=== PATIENT | female | born 1995 | race Caucasian/White ===

== ENCOUNTER 2016-06-30 12:22 | Outpatient (CLI) | payer OTHER ==
[~2016-06-30 12:22] MED LIST: COLACE 100MG C100 MG PO
== END 2016-06-30 14:07 | disposition home or self-care (01) ==
LOC: GENOP 12:22
DX: O42.913 Preterm premature rupture of membranes, unspecified as to length of time between rupture and onset of labor, third trimester (principal); Z3A.31 31 weeks gestation of pregnancy
CPT/HCPCS: 81001; 83518; G0463

== ENCOUNTER 2016-07-02 05:27 | Inpatient (IN) | payer OTHER ==
[~2016-07-02] VITALS: Ht 160 cm; Wt 73.0 kg
[2016-07-02 06:17] LABS: HEMOGLOBIN 13.1 gm/dl (12.3-15.3); RED BLOOD COUNT 4.46 M/UL (4.00-5.10); WHITE BLOOD COUNT 9.1 K/UL (4.5-11.0)
[2016-07-03 02:50] LABS: HEMOGLOBIN 11.3 gm/dl (12.3-15.3)
[2016-07-04] MEDS ORDERED: NORCO 5-325 TA1 EACH PO (12:18)
[2016-07-04] MEDS ORDERED: IBUPROFEN600 MG PO (12:18)
== END 2016-07-04 14:14 | disposition home or self-care (01) | DRG 775 ==
LOC: OB 05:27
PROVIDERS: ADMIT Obstetrics & Gynecology
PROC: 3E033VJ Introduction of Other Hormone into Peripheral Vein, Percutaneous Approach (ICD-10-PCS; principal; 2016-07-02)
PROC: 10907ZC Drainage of Amniotic Fluid, Therapeutic from Products of Conception, Via Natural or Artificial Opening (ICD-10-PCS; principal; 2016-07-02)
PROC: 10E0XZZ Delivery of Products of Conception, External Approach (ICD-10-PCS; principal; 2016-07-02)
DX: O99.334 Smoking (tobacco) complicating childbirth (principal); F17.210 Nicotine dependence, cigarettes, uncomplicated; O75.89 Other specified complications of labor and delivery; Z3A.39 39 weeks gestation of pregnancy; Z37.0 Single live birth; Z28.21 Immunization not carried out because of patient refusal; Z82.49 Family history of ischemic heart disease and other diseases of the circulatory system; Z80.9 Family history of malignant neoplasm, unspecified; Z83.3 Family history of diabetes mellitus; Z84.89 Family history of other specified conditions
CPT/HCPCS: 36415; 51702; 81001; 82800; 83518; 85014; 85018; 85025; 90715; G0463; J2405; J2590; J2795; J7120

== ENCOUNTER 2016-07-16 06:22 | Emergency (ER) | payer OTHER ==
[~2016-07-16 06:22] MED LIST changes: +IBUPROFEN600 MG PO; +NORCO 5-325 TA1 EACH PO
== END 2016-07-16 07:40 | disposition home or self-care (01) ==
LOC: ER1 06:22
DX: B86 Scabies (principal)
CPT/HCPCS: 99282

== ENCOUNTER → 2017-01-04 | Outpatient (CLI) | payer OTHER | LOC: NM 09:00 | DX: I10 Essential (primary) hypertension (principal) | CPT/HCPCS: 78227; A9537; J2805 ==

== ENCOUNTER 2020-10-06 13:52 | Observation (INO) | payer OTHER ==
[~2020-10-06] VITALS: Ht 157.5 cm; Wt 64.9 kg
[~2020-10-06 13:52] MED LIST changes: +LEVAQUIN500 MG PO; +ULTRAM50 MG PO
[2020-10-06 15:07] LABS: HEMOGLOBIN 12.9 gm/dl (12.3-15.3); RED BLOOD COUNT 4.42 M/UL (4.00-5.10); WHITE BLOOD COUNT 13.2 K/UL (4.5-11.0)
[2020-10-06 16:13] LABS: BUN/CREATININE RATIO 11 (0-10)
[2020-10-07 06:26] LABS: HEMOGLOBIN 10.8 gm/dl (12.3-15.3); RED BLOOD COUNT 3.76 M/UL (4.00-5.10); WHITE BLOOD COUNT 6.6 K/UL (4.5-11.0)
[2020-10-07] MEDS ORDERED: TYLENOL EXTRA500 MG PO (15:17)
[2020-10-07] MEDS ORDERED: NAPROXEN250 MG PO (15:17)
[2020-10-07] MEDS ORDERED: ROXICODONE TAB 55 MG PO (15:17)
[2020-10-07] MEDS ORDERED: DOCUSATE SODIU100 MG PO (15:17)
[2020-10-07 15:41] LABS: HEMOGLOBIN 11.6 gm/dl (12.3-15.3)
--- NOTE | 2020-10-07 16:38 | NUR ---
INSTUCTED ON FOLLOW UP WITH MD, KEEP APPOINTMENT REPORT ANY EXCESS BLEEDING. VERBALIZED UNDERSTANDING MARY PEREZ R.N.
== END 2020-10-07 17:09 | disposition home or self-care (01) ==
LOC: ER1 13:52 → CDU 16:35 → MED SURG 4 23:48
PROVIDERS: Obstetrics & Gynecology; Physician Assistant Medical; ADMIT Obstetrics & Gynecology
PROC: 0UB64ZZ Excision of Left Fallopian Tube, Percutaneous Endoscopic Approach (ICD-10-PCS; 2020-10-07)
PROC: 0UDB7ZZ Extraction of Endometrium, Via Natural or Artificial Opening (ICD-10-PCS; 2020-10-07)
PROC: 10T24ZZ Resection of Products of Conception, Ectopic, Percutaneous Endoscopic Approach (ICD-10-PCS; principal; 2020-10-07 11:56)
DX: O00.101 Right tubal pregnancy without intrauterine pregnancy (principal); N83.8 Other noninflammatory disorders of ovary, fallopian tube and broad ligament; K66.1 Hemoperitoneum; R93.89 Abnormal findings on diagnostic imaging of other specified body structures; K21.9 Gastro-esophageal reflux disease without esophagitis; D64.9 Anemia, unspecified; Z20.822 Contact with and (suspected) exposure to COVID-19
CPT/HCPCS: 36415; 76801; 80053; 81001; 84702; 85014; 85018; 85025; 86900; 86901; 96374; 96375; 96376; 99285; G0378; J0690; J1100; J1885; J2001; J2250; J2270; J2370; J2405; J2704; J2710; J2795; J3010; J7120; Q0177; U0002

== ENCOUNTER 2020-12-06 08:14 | Emergency (ER) | payer OTHER ==
[~2020-12-06 08:14] MED LIST changes: +DOCUSATE SODIU100 MG PO; +NAPROXEN250 MG PO; +ROXICODONE TAB 55 MG PO; +TYLENOL EXTRA500 MG PO
[2020-12-06 09:03] LABS: HEMOGLOBIN 12.9 gm/dl (12.3-15.3); RED BLOOD COUNT 4.65 M/UL (4.00-5.10); WHITE BLOOD COUNT 6.6 K/UL (4.5-11.0)
[2020-12-06 09:35] LABS: BUN/CREATININE RATIO 11 (0-10)
== END 2020-12-06 12:20 | disposition home or self-care (01) ==
LOC: ER1 08:14
PROVIDERS: Physician Assistant
DX: O20.8 Other hemorrhage in early pregnancy (principal); Z3A.01 Less than 8 weeks gestation of pregnancy
CPT/HCPCS: 76817; 80053; 81001; 84702; 85025; 99284

== ENCOUNTER 2021-06-13 17:19 | Outpatient (CLI) | payer OTHER ==
[~2021-06-13] VITALS: Ht 160 cm; Wt 70.3 kg
== END 2021-06-14 11:26 | disposition home or self-care (01) ==
LOC: GENOP 17:19
DX: O99.613 Diseases of the digestive system complicating pregnancy, third trimester (principal); A08.4 Viral intestinal infection, unspecified; O99.333 Smoking (tobacco) complicating pregnancy, third trimester; F17.210 Nicotine dependence, cigarettes, uncomplicated; Z3A.34 34 weeks gestation of pregnancy; Z20.822 Contact with and (suspected) exposure to COVID-19
CPT/HCPCS: 0240U; 81001; 96360; 96361; 96365; 96366; 96367; 96375; J2405; J2550; J7120

== ENCOUNTER 2021-07-07 16:02 | Outpatient (CLI) | payer OTHER | END 2021-07-07 18:35 | disposition home or self-care (01) | LOC: GENOP 16:02 | DX: O47.1 False labor at or after 37 completed weeks of gestation (principal); O99.891 Other specified diseases and conditions complicating pregnancy; R10.2 Pelvic and perineal pain; Z87.891 Personal history of nicotine dependence; Z3A.38 38 weeks gestation of pregnancy | CPT/HCPCS: 81001; G0463 ==

== ENCOUNTER 2021-07-13 10:45 | Inpatient (IN) | payer OTHER ==
[~2021-07-13] VITALS: Ht 160 cm; Wt 75.7 kg
[2021-07-15 06:30] LABS: RED BLOOD COUNT 4.15 M/UL (4.00-5.10); WHITE BLOOD COUNT 7.7 K/UL (4.5-11.0)
[2021-07-15] MEDS ORDERED: FAMOTIDINE20 MG PO (06:41)
[2021-07-15] MEDS ORDERED: PRENATABS FA T1 EACH PO (06:42)
[2021-07-15] MEDS ORDERED: IBUPROFEN600 MG PO (12:07)
[2021-07-15] MEDS ORDERED: DOCUSATE SODIU100 MG PO (12:07)
[2021-07-16 03:17] LABS: HEMOGLOBIN 11.5 gm/dl (12.3-15.3)
== END 2021-07-16 16:58 | disposition home or self-care (01) | DRG 807 ==
LOC: LBRF 10:45 → OB 07-15 05:32
PROVIDERS: Obstetrics & Gynecology; ADMIT Obstetrics & Gynecology
PROC: 10E0XZZ Delivery of Products of Conception, External Approach (ICD-10-PCS; principal; 2021-07-15)
PROC: 10907ZC Drainage of Amniotic Fluid, Therapeutic from Products of Conception, Via Natural or Artificial Opening (ICD-10-PCS; 2021-07-15)
PROC: 3E033VJ Introduction of Other Hormone into Peripheral Vein, Percutaneous Approach (ICD-10-PCS; 2021-07-15)
PROC: 4A1H7CZ Monitoring of Products of Conception, Cardiac Rate, Via Natural or Artificial Opening (ICD-10-PCS; 2021-07-15)
PROC: 10H073Z Insertion of Monitoring Electrode into Products of Conception, Via Natural or Artificial Opening (ICD-10-PCS; 2021-07-15)
PROC: 10H07YZ Insertion of Other Device into Products of Conception, Via Natural or Artificial Opening (ICD-10-PCS; 2021-07-15)
DX: O80 Encounter for full-term uncomplicated delivery (principal); Z37.0 Single live birth; Z20.822 Contact with and (suspected) exposure to COVID-19; Z3A.39 39 weeks gestation of pregnancy; Z82.49 Family history of ischemic heart disease and other diseases of the circulatory system; Z83.3 Family history of diabetes mellitus; Z80.8 Family history of malignant neoplasm of other organs or systems
CPT/HCPCS: 36415; 81001; 82800; 85014; 85018; 85025; J2590; J7120; U0003